=== PATIENT | female | born 1940 | race Caucasian/White ===

== ENCOUNTER → 2019-03-22 | Outpatient (CLI) | payer MEDICARE ==
[~2019-03-22] MED LIST: ALBU18HF INH; CHOL200052 PO; DEXL60CA2 PO; FLUT1DIS3 INH; HYDR25TA6 PO; MAGN400T26 PO; OMEP20CA9 PO; OMEP40CA6 PO; ONDA4TAB10 PO; PANT40TA3 PO; PANT40TA5 PO; POTA10TA11 PO; POTA20TA91 PO; POTA99TA14 PO; RANI150T23 PO; SUCR1ORA11 PO; TRAM50TA2 PO
== END | disposition home or self-care (01) ==
LOC: RAD 16:30
PROVIDERS: ATTEND Family Medicine
DX: M47.812 Spondylosis without myelopathy or radiculopathy, cervical region (principal)
CPT/HCPCS: 72050

== ENCOUNTER → 2019-03-23 | Outpatient (CLI) | payer MEDICARE | END | disposition home or self-care (01) | LOC: EDSTATUS 15:00 → RAD 15:05 | PROVIDERS: ATTEND Family Medicine | DX: M54.2 Cervicalgia (principal); R51 Headache; R42 Dizziness and giddiness; W50.0XXA Accidental hit or strike by another person, initial encounter; Y93.89 Activity, other specified; Y92.89 Other specified places as the place of occurrence of the external cause; Y99.8 Other external cause status | CPT/HCPCS: 70450; 70486 ==

== ENCOUNTER 2019-04-30 10:51 | Emergency (ER) | payer MEDICARE ==
[~2019-04-30] VITALS: Ht 170.2 cm; Wt 136.5 kg
[2019-04-30 12:44] VITALS: BP 169/83
== END 2019-04-30 12:50 | disposition home or self-care (01) ==
LOC: ED 12:00
DX: M25.511 Pain in right shoulder (principal); E78.5 Hyperlipidemia, unspecified; I10 Essential (primary) hypertension; J44.9 Chronic obstructive pulmonary disease, unspecified; Z90.49 Acquired absence of other specified parts of digestive tract; Z90.710 Acquired absence of both cervix and uterus
CPT/HCPCS: 73030; 99284; Q0162

== ENCOUNTER 2019-07-04 05:48 | Observation (INO) | payer MEDICARE ==
[~2019-07-04] VITALS: Ht 172.7 cm; Wt 133.0 kg
[~2019-07-04 05:48] MED LIST changes: +ACET325T26 PO; +ALPR0.254 PO; +AMLO-150 PO; +AMLO10TA8 PO; +CALC200T24 PO; +DOCU-131 PO; +HYDR-3237 PO; +HYDROCHLOROTHIAZIDE; +MAGN400T50 PO; +METH500T7 PO; +METO25TA35 PO; +OMEP40CA42 PO; -OMEP40CA6 PO; +ONDA4TAB13 PO; +PANT20TA3 PO; +PHOS250T3 PO; +POLY17PO5 PO; +POTA20TA6 PO; +RANI-467 PO; -RANI150T23 PO; +VANC1VIA3 PO
[2019-07-04] MEDS ORDERED: SODIUM CHLORIDE FLUSH 10ML SYR IVF ONE (06:30)
[2019-07-04 06:39] LABS: BASOPHILS % (AUTO) 2 % (0-1); EOSINOPHILS # (AUTO) 0.47 x10^3/uL (0-0.4); EOSINOPHILS % (AUTO) 8 % (1-7); LYMPHOCYTES # (AUTO) 1.23 x10^3/uL (1-3.4); LYMPHOCYTES % (AUTO) 20 % (22-44); MD NO; MEAN CORPUSCULAR HEMOGLOBIN 30.3 pg (27.0-34.8); MEAN CORPUSCULAR VOLUME 91.9 fL (80-100); MEAN PLATELET VOLUME 8.3 fL (7.4-10.4); MONOCYTES # (AUTO) 0.58 x10^3/uL (0.2-0.8); MONOCYTES % (AUTO) 9 % (2-9); NEUTROPHILS # (AUTO) 3.91 x10^3/uL (1.8-6.8); NEUTROPHILS % (AUTO) 62 % (42-75); PLATELET COUNT 390 x10^3/uL (130-400); RED BLOOD COUNT 3.62 x10^6/uL (3.82-5.3); RED CELL DISTRIBUTION WIDTH 16.7 % (9.6-15.2)
[2019-07-04 06:52] LABS: ALANINE AMINOTRANSFERASE 106 U/L (12-78); ALBUMIN 2.1 g/dL (3.4-5.0); ANION GAP 7 mmol/L (5-15); CALCIUM 8.2 mg/dL (8.5-10.1); CHLORIDE 103 mmol/L (98-107); CREATININE 0.72 mg/dL (0.55-1.02)
[2019-07-04 06:56] LABS: ALKALINE PHOSPHATASE 685 U/L (45-117); BILIRUBIN,TOTAL 0.7 mg/dL (0.2-1.0); TOTAL PROTEIN 5.7 g/dL (6.4-8.2); TROPONIN I < 0.015 ng/mL (0.000-0.045)
--- NOTE | 2019-07-04 06:58 | NUR ---
BEDSIDE REPORT FROM [place] MA, PT PUT ON BEDPAN CANNOT GET UP TO BEDSIDE COMMODE OR BATHROOM.
[2019-07-04 07:20] LABS: MICROSCOPIC NOT IND
--- NOTE | 2019-07-04 07:20 | NUR ---
PT RETURNED FROM [facility]. PT RESTING IN [facility]. UA SENT TO LAB. NO NEEDS AT THIS TIME.
[2019-07-04 07:22] LABS: CULTURE INDICATED? NO
--- NOTE | 2019-07-04 08:20 | NUR ---
PT RESTING IN [facility], PT TO BE ADMITTED. AWAITING ADMIT ORDER AND BED ASSIGNMENT. PT PLACED ON BEDPAN. NO NEEDS AT THIS TIME.
--- NOTE | 2019-07-04 08:52 | NUR ---
PT TEARFUL AND ANXIOUS ABOUT ADMISSION, STATING SHE IS FEELING OVERWHELMED ABOUT HER MEDICAL ISSUES. PT REASSURED AND GIVEN BLANKETS FOR COMFORT. AT BEDSIDE. PT STATES SHE IS IN PAIN AND NAUSEOUS, MD NOTIFIED.
--- NOTE | 2019-07-04 09:37 | NUR ---
REPORT TO CHARLEE MA
[2019-07-04] MEDS ORDERED: ONDANSETRON 2MG/ML, 2ML IVPush PRN (10:00)
[2019-07-04] MEDS ORDERED: ACETAMINOPHEN 325 MG TABLET PO PRN (10:00)
[2019-07-04 10:15] VITALS: BP 172/76
[2019-07-04] MEDS: BUTALB/APAP/CAFFEINE 50MG/325MG/40MG PO PRN ×2 (10:40→17:51)
[2019-07-04] MEDS: hydrALAzine 20 MG/ML, 1ML IVPush PRN (10:40)
[2019-07-04 13:41] VITALS: BP 159/72
[2019-07-04] MEDS ORDERED: ALBUTEROL SULFATE 2.5 MG/3 ML NPPB PRN (15:46)
[2019-07-04] MEDS: NEUTRA PHOS K 250 MG TABLET PO SCH ×2 (16:28→20:34)
[2019-07-04] MEDS: POTASSIUM CHLORIDE 20 MEQ TAB.ER.PRT PO SCH (16:28)
[2019-07-04 20:10] VITALS: BP 158/83
[2019-07-04] MEDS: METOPROLOL TARTRATE 25 MG TABLET PO SCH (20:36)
[2019-07-04] MEDS: METHOCARBAMOL 500 MG TABLET PO PRN (20:37)
[2019-07-04] MEDS ORDERED: ENOXAPARIN 30 MG/0.3 ML SQ SCH (21:00)
[2019-07-04] MEDS: ONDANSETRON ODT 4 MG PO PRN (22:30)
[2019-07-05 00:38] VITALS: BP 168/81
[2019-07-05] MEDS: hydrALAzine 20 MG/ML, 1ML IVPush PRN (00:43)
[2019-07-05] MEDS: CALCIUM CARBONATE 500 MG TAB.CHEW PO PRN (00:44)
[2019-07-05] MEDS: MORPHINE SULFATE 4 MG/ML, 1ML IVPush PRN ×2 (02:27→09:35)
[2019-07-05] MEDS: PANTOPRAZOLE 20MG TABLET PO SCH (04:57)
[2019-07-05] MEDS: METHOCARBAMOL 500 MG TABLET PO PRN ×2 (04:57→23:09)
[2019-07-05 05:13] LABS: BASOPHILS # (AUTO) 0.07 x10^3/uL (0-0.1); BASOPHILS % (AUTO) 1 % (0-1); EOSINOPHILS # (AUTO) 0.51 x10^3/uL (0-0.4); EOSINOPHILS % (AUTO) 8 % (1-7); LYMPHOCYTES # (AUTO) 1.18 x10^3/uL (1-3.4); LYMPHOCYTES % (AUTO) 18 % (22-44); MD NO; MEAN CORPUSCULAR HEMOGLOBIN 29.7 pg (27.0-34.8); MEAN CORPUSCULAR HGB CONC 32.4 g/dL (32.4-35.8); MEAN CORPUSCULAR VOLUME 91.5 fL (80-100); MEAN PLATELET VOLUME 8.2 fL (7.4-10.4); MONOCYTES # (AUTO) 0.57 x10^3/uL (0.2-0.8); MONOCYTES % (AUTO) 8 % (2-9); NEUTROPHILS # (AUTO) 4.41 x10^3/uL (1.8-6.8); NEUTROPHILS % (AUTO) 65 % (42-75); PLATELET COUNT 341 x10^3/uL (130-400); RED BLOOD COUNT 3.51 x10^6/uL (3.82-5.3); RED CELL DISTRIBUTION WIDTH 16.4 % (9.6-15.2)
[2019-07-05 05:23] LABS: CALCIUM 8.6 mg/dL (8.5-10.1); CHLORIDE 105 mmol/L (98-107)
[2019-07-05 05:26] LABS: ANION GAP 6 mmol/L (5-15); CREATININE 0.76 mg/dL (0.55-1.02)
[2019-07-05 09:00] VITALS: BP 177/83
[2019-07-05] MEDS ORDERED: MAGNESIUM SULFATE PMX 2GM/50ML 50 ML IV ONE (09:00)
[2019-07-05] MEDS: POTASSIUM CHLORIDE 20 MEQ TAB.ER.PRT PO SCH ×2 (09:00→17:30)
[2019-07-05] MEDS: POLYETHYLENE GLYCOL 17 GM PACKET PO SCH (09:01)
[2019-07-05] MEDS: NEUTRA PHOS K 250 MG TABLET PO SCH ×3 (09:01→20:02)
[2019-07-05] MEDS: METOPROLOL TARTRATE 25 MG TABLET PO SCH ×2 (09:06→20:02)
[2019-07-05 09:35] LABS: ALBUMIN 2.1 g/dL (3.4-5.0); BILIRUBIN, DIRECT 0.5 mg/dL (0.1-0.2)
[2019-07-05 09:37] LABS: BILIRUBIN,INDIRECT 0.3 mg/dL (0.0-2.0); BILIRUBIN,TOTAL 0.8 mg/dL (0.2-1.0); TOTAL PROTEIN 5.5 g/dL (6.4-8.2)
[2019-07-05] MEDS ORDERED: ALBUTEROL SULFATE 2.5 MG/3 ML NPPB SCH (10:00)
[2019-07-05] MEDS: ONDANSETRON ODT 4 MG PO PRN (10:34)
[2019-07-05] MEDS: BUDESONIDE 0.5 MG/2 ML INHA INH SCH ×2 (10:55→19:27)
[2019-07-05 11:36] VITALS: BP 135/67
[2019-07-05] MEDS ORDERED: PROPOFOL 10 MG/ML, 20ML ONE (13:49)
[2019-07-05] MEDS: ALBUTEROL SULFATE 2.5 MG/3 ML NPPB SCH ×2 (13:55→19:27)
[2019-07-05 14:00] VITALS: BP 161/73
[2019-07-05] MEDS ORDERED: LABETALOL 5MG/ML, 20ML IV PRN (14:00)
[2019-07-05] MEDS ORDERED: FENTANYL PF 100 MCG/2ML IV PRN (14:00)
[2019-07-05] MEDS ORDERED: MEPERIDINE/PF 25MG/0.5ML IVPush PRN (14:00)
[2019-07-05] MEDS ORDERED: PROMETHAZINE 25 MG/ML, 1ML IV PRN (14:00)
[2019-07-05] MEDS ORDERED: HYDROmorphone 1 MG/ML, 1ML INJ IV PRN (14:00)
[2019-07-05] MEDS ORDERED: ALBUTEROL SULFATE 2.5 MG/3 ML NPPB PRN (14:00)
[2019-07-05] MEDS ORDERED: OXYcodone 5 MG/5 ML ORAL.SOL UDC PO PRN (14:00)
[2019-07-05] MEDS ORDERED: METOCLOPRAMIDE 5 MG/ML, 2ML IV PRN (14:00)
[2019-07-05] MEDS ORDERED: KETOROLAC 30 MG/1 ML IV PRN (14:00)
[2019-07-05] MEDS ORDERED: ONDANSETRON 2MG/ML, 2ML IVPush PRN (14:00)
[2019-07-05] MEDS ORDERED: hydrALAzine 20 MG/ML, 1ML IV PRN (14:00)
[2019-07-05 19:47] VITALS: BP 145/67
[2019-07-06 03:29] VITALS: BP 167/74
[2019-07-06] MEDS: BUTALB/APAP/CAFFEINE 50MG/325MG/40MG PO PRN (03:31)
[2019-07-06] MEDS: PANTOPRAZOLE 20MG TABLET PO SCH (03:31)
[2019-07-06 06:16] LABS: ALANINE AMINOTRANSFERASE 68 U/L (12-78); ANION GAP 7 mmol/L (5-15); CALCIUM 8.5 mg/dL (8.5-10.1); CHLORIDE 107 mmol/L (98-107); CREATININE 0.74 mg/dL (0.55-1.02)
[2019-07-06 06:19] LABS: ALKALINE PHOSPHATASE 716 U/L (45-117); BILIRUBIN,TOTAL 0.7 mg/dL (0.2-1.0); TOTAL PROTEIN 5.4 g/dL (6.4-8.2)
[2019-07-06 08:33] VITALS: BP 158/88
[2019-07-06] MEDS: NEUTRA PHOS K 250 MG TABLET PO SCH ×3 (08:40→21:45)
[2019-07-06] MEDS: POLYETHYLENE GLYCOL 17 GM PACKET PO SCH (08:40)
[2019-07-06] MEDS: POTASSIUM CHLORIDE 20 MEQ TAB.ER.PRT PO SCH ×2 (08:40→17:05)
[2019-07-06] MEDS: METOPROLOL TARTRATE 25 MG TABLET PO SCH ×2 (08:40→21:45)
[2019-07-06] MEDS: ALBUTEROL SULFATE 2.5 MG/3 ML NPPB SCH ×2 (10:15→21:00)
[2019-07-06] MEDS: BUDESONIDE 0.5 MG/2 ML INHA INH SCH ×2 (10:15→21:00)
[2019-07-06] MEDS ORDERED: MAGNESIUM SULFATE PMX 2GM/50ML 50 ML IV ONE (12:00)
[2019-07-06 14:17] VITALS: BP 168/76
[2019-07-06] MEDS: METHOCARBAMOL 500 MG TABLET PO PRN (17:05)
[2019-07-06 17:20] VITALS: BP 144/86
[2019-07-06 20:12] VITALS: BP 168/70
[2019-07-06] MEDS: CALCIUM CARBONATE 500 MG TAB.CHEW PO PRN (22:00)
[2019-07-07] MEDS ORDERED: MORPHINE SULFATE 4 MG/ML, 1ML IVPush PRN (00:30)
[2019-07-07] MEDS: TRAZODONE 50MG TABLET PO PRN ×2 (01:09→21:15)
[2019-07-07 01:43] VITALS: BP 146/66
[2019-07-07] MEDS: METHOCARBAMOL 500 MG TABLET PO PRN ×2 (04:50→21:15)
[2019-07-07] MEDS: PANTOPRAZOLE 20MG TABLET PO SCH (05:06)
[2019-07-07 07:42] VITALS: BP 172/75
[2019-07-07] MEDS: POLYETHYLENE GLYCOL 17 GM PACKET PO SCH (07:53)
[2019-07-07] MEDS: METOPROLOL TARTRATE 25 MG TABLET PO SCH ×2 (07:53→21:16)
[2019-07-07] MEDS: NEUTRA PHOS K 250 MG TABLET PO SCH ×3 (07:53→21:15)
[2019-07-07] MEDS: POTASSIUM CHLORIDE 20 MEQ TAB.ER.PRT PO SCH ×2 (07:54→15:59)
[2019-07-07] MEDS: ALBUTEROL SULFATE 2.5 MG/3 ML NPPB SCH ×2 (10:40→21:00)
[2019-07-07] MEDS: BUDESONIDE 0.5 MG/2 ML INHA INH SCH ×2 (10:40→21:00)
[2019-07-07 13:32] VITALS: BP 159/74
[2019-07-07] MEDS: CALCIUM CARBONATE 500 MG TAB.CHEW PO PRN (15:59)
[2019-07-07 18:54] VITALS: BP 149/75
[2019-07-08 04:00] VITALS: BP 144/81
[2019-07-08] MEDS: PANTOPRAZOLE 20MG TABLET PO SCH (06:00)
[2019-07-08 08:04] VITALS: BP 153/64
[2019-07-08] MEDS: POLYETHYLENE GLYCOL 17 GM PACKET PO SCH ×3 (08:19→08:35)
[2019-07-08] MEDS: NEUTRA PHOS K 250 MG TABLET PO SCH (08:19)
[2019-07-08] MEDS: POTASSIUM CHLORIDE 20 MEQ TAB.ER.PRT PO SCH (08:20)
[2019-07-08] MEDS: METOPROLOL TARTRATE 25 MG TABLET PO SCH (08:20)
[2019-07-08] MEDS: BUDESONIDE 0.5 MG/2 ML INHA INH SCH (08:54)
[2019-07-08] MEDS: ALBUTEROL SULFATE 2.5 MG/3 ML NPPB SCH (08:54)
[2019-07-08] MEDS: METHOCARBAMOL 500 MG TABLET PO PRN (09:17)
[2019-07-08] MEDS ORDERED: TRAM50TA2 PO (11:14)
[2019-07-08 13:25] VITALS: BP 147/77
== END 2019-07-08 14:34 ==
LOC: ED 08:47 → INTOOBSV 09:54 → EDIP 09:54 → 5SO 09:59 → 4NE 07-06 15:49
PROVIDERS: ADMIT Internal Medicine; ATTEND Internal Medicine
DX: R10.13 Epigastric pain (principal); K31.7 Polyp of stomach and duodenum; E46 Unspecified protein-calorie malnutrition; K44.9 Diaphragmatic hernia without obstruction or gangrene; K26.9 Duodenal ulcer, unspecified as acute or chronic, without hemorrhage or perforation; I12.9 Hypertensive chronic kidney disease with stage 1 through stage 4 chronic kidney disease, or unspecified chronic kidney disease; D64.9 Anemia, unspecified; E03.9 Hypothyroidism, unspecified; E66.01 Morbid (severe) obesity due to excess calories; E78.5 Hyperlipidemia, unspecified; E83.51 Hypocalcemia; E86.0 Dehydration; F41.9 Anxiety disorder, unspecified; K21.9 Gastro-esophageal reflux disease without esophagitis; J44.9 Chronic obstructive pulmonary disease, unspecified; K76.0 Fatty (change of) liver, not elsewhere classified; G89.29 Other chronic pain; Z68.41 Body mass index [BMI] 40.0-44.9, adult; N18.9 Chronic kidney disease, unspecified; Z79.899 Other long term (current) drug therapy
CPT/HCPCS: 36415; 43239; 74022; 80048; 80053; 80074; 80076; 81003; 82784; 82977; 83516; 83690; 83735; 84075; 84080; 84484; 85025; 88305; 93005; 94640; 96365; 96366; 96372; 96375; 96376; 97116; 97162; 97166; 97530; 99285; G0378; J0360; J1650; J2270; J2405; J2704; J3475; J7613; J7626; Q0162

== ENCOUNTER 2019-07-23 13:41 | Emergency (ER) | payer MEDICARE ==
[~2019-07-23] VITALS: Ht 172.7 cm; Wt 100.0 kg
--- NOTE | 2019-07-23 13:45 | NUR ---
PT BIB EMS FOR WORSENING WEAKNESS AND SENSATION IN UPPER EXTREMITIES. PT HAD SPINAL FUSION ON JUN 25. PT STATES SHE DID NOT HAVE ANY PROBLEMS W STRENGTH PRIOR TO SURGERY. PT DENIES ANY PAIN. VS STABLE AT THIS TIME
--- NOTE | 2019-07-23 14:00 | NUR ---
PRIOR TO TRANSPORT TO MRI-PATIENT REPORTS SHE IS UNABLE TO TOLERATE MRI WITHOUT SEDATION. HOWEVER SHE REPORTS "I HALLUCINATE WHEN THEY GIVE ME THE MEDS TO KEEP ME CALM. I DON'T KNOW THE NAME OF MEDS." PROVIDER MADE AWARE-CONSIDERING MEDICATION CHOICE. DIRECTOR OF SPA AND GUEST EXPERIENCE MADE AWARE
[2019-07-23 14:19] LABS: BASOPHILS # (AUTO) 0.04 x10^3/uL (0-0.1); BASOPHILS % (AUTO) 1 % (0-1); EOSINOPHILS # (AUTO) 0.24 x10^3/uL (0-0.4); EOSINOPHILS % (AUTO) 3 % (1-7); LYMPHOCYTES # (AUTO) 1.14 x10^3/uL (1-3.4); LYMPHOCYTES % (AUTO) 17 % (22-44); MD NO; MEAN CORPUSCULAR HEMOGLOBIN 29.9 pg (27.0-34.8); MEAN CORPUSCULAR HGB CONC 32.5 g/dL (32.4-35.8); MEAN CORPUSCULAR VOLUME 91.8 fL (80-100); MEAN PLATELET VOLUME 8.5 fL (7.4-10.4); MONOCYTES # (AUTO) 0.46 x10^3/uL (0.2-0.8); MONOCYTES % (AUTO) 7 % (2-9); NEUTROPHILS # (AUTO) 5.03 x10^3/uL (1.8-6.8); NEUTROPHILS % (AUTO) 73 % (42-75); PLATELET COUNT 273 x10^3/uL (130-400); RED BLOOD COUNT 4.25 x10^6/uL (3.82-5.3); RED CELL DISTRIBUTION WIDTH 15.1 % (9.6-15.2)
[2019-07-23 14:28] LABS: ALBUMIN 2.7 g/dL (3.4-5.0); ANION GAP 5 mmol/L (5-15); CALCIUM 8.5 mg/dL (8.5-10.1); CHLORIDE 110 mmol/L (98-107); CREATININE 0.88 mg/dL (0.55-1.02)
[2019-07-23] MEDS ORDERED: MIDAZOLAM 1 MG/ML, 2ML IVPush ONE ×2 (14:30→18:00)
[2019-07-23 14:31] LABS: INTERNATIONAL NORMALIZED RATIO 0.99 (0.93-1.1); PROTHROMBIN TIME 10.4 Seconds (9.6-11.5)
[2019-07-23] MEDS ORDERED: MIDAZOLAM 1 MG/ML, 2ML ONE (15:45)
[2019-07-23 15:50] VITALS: BP 116/52
--- NOTE | 2019-07-23 15:50 | NUR ---
Right AC PIV Placed Patient then Tranported To MRI with Barber Instructor/manager mall
--- NOTE | 2019-07-23 15:54 | NUR ---
Medicated Per EMAR with 2mg of Versed IV Slow Push while in MRI (on pox/3l nc)
--- NOTE | 2019-07-23 15:59 | NUR ---
Medicated Per EMAR with 2mg of Versed IV Slow Push while in MRI (on pox/nasal cannula increased to 5l nc). total of 4mg thus far ase certified technician reports scan going well.
--- NOTE | 2019-07-23 17:48 | NUR ---
with reassessment no changes in neuro exam, remain with right and left upper extremity pain causing poor mobility. no lower extremity involvment
--- NOTE | 2019-07-23 18:33 | NUR ---
Arrangements made by throughput rn for medical tranport to transfer patient back to snf at 1930 Patient/ made aware dinner tray ordered. helped up to restroom
== END 2019-07-24 09:15 | disposition home or self-care (01) ==
LOC: ED 14:00
DX: R20.2 Paresthesia of skin (principal); R53.1 Weakness; I10 Essential (primary) hypertension; J44.9 Chronic obstructive pulmonary disease, unspecified; Z90.710 Acquired absence of both cervix and uterus; Z90.49 Acquired absence of other specified parts of digestive tract
CPT/HCPCS: 36415; 72141; 80048; 82040; 85025; 85610; 85730; 93005; 99284; J2250; 96374

== ENCOUNTER → 2019-08-25 | Outpatient (CLI) | payer MEDICARE | END | disposition home or self-care (01) | LOC: CFH 10:56 | PROVIDERS: ATTEND Nurse Practitioner Gerontology | DX: M47.812 Spondylosis without myelopathy or radiculopathy, cervical region (principal); M48.02 Spinal stenosis, cervical region | CPT/HCPCS: 72040 ==

== ENCOUNTER 2019-09-16 19:13 | Emergency (ER) | payer MEDICARE ==
[~2019-09-16] VITALS: Ht 170.2 cm; Wt 120.0 kg
--- NOTE | 2019-09-16 20:06 | NUR ---
Patient came to ER due to high BP. Patient states she has a hx of HTN which she takes meds for. She states she randomly checks her BP throughout the day and it was high at home so she came in. Patient has been feeling more generalized weakness lately. Patient denies WILLIAM, dizziness. No facial droop or slurred speech noted. Pushes, pulls, and water resource manager equal. Sensation inact.
--- NOTE | 2019-09-16 20:29 | NUR ---
Patient up to bathroom for UA. Patient ambulatory with a steady gait.
[2019-09-16 20:37] LABS: BASOPHILS # (AUTO) 0.02 x10^3/uL (0-0.1); BASOPHILS % (AUTO) 0 % (0-1); EOSINOPHILS # (AUTO) 0.27 x10^3/uL (0-0.4); EOSINOPHILS % (AUTO) 3 % (1-7); LYMPHOCYTES # (AUTO) 2.19 x10^3/uL (1-3.4); LYMPHOCYTES % (AUTO) 25 % (22-44); MD NO; MEAN CORPUSCULAR HEMOGLOBIN 29.2 pg (27.0-34.8); MEAN CORPUSCULAR HGB CONC 32.6 g/dL (32.4-35.8); MEAN CORPUSCULAR VOLUME 89.5 fL (80-100); MEAN PLATELET VOLUME 8.6 fL (7.4-10.4); MONOCYTES # (AUTO) 0.57 x10^3/uL (0.2-0.8); MONOCYTES % (AUTO) 6 % (2-9); NEUTROPHILS # (AUTO) 5.86 x10^3/uL (1.8-6.8); NEUTROPHILS % (AUTO) 66 % (42-75); PLATELET COUNT 349 x10^3/uL (130-400); RED BLOOD COUNT 4.59 x10^6/uL (3.82-5.3)
[2019-09-16 20:48] LABS: ALBUMIN 3.3 g/dL (3.4-5.0); ANION GAP 5 mmol/L (5-15); CALCIUM 9.3 mg/dL (8.5-10.1); CHLORIDE 109 mmol/L (98-107); CREATININE 1.09 mg/dL (0.55-1.02)
[2019-09-16 20:55] LABS: CULTURE INDICATED? YES; MICROSCOPIC INDICATED
[2019-09-16] MEDS ORDERED: CEFDINIR 300 MG CAPSULE ONE (21:21)
[2019-09-16 21:25] VITALS: BP 166/85
[2019-09-16] MEDS ORDERED: CEFDINIR 300 MG CAPSULE PO ONE (21:30)
== END 2019-09-16 22:04 | disposition home or self-care (01) ==
LOC: ED 21:14
DX: E86.0 Dehydration (principal); N39.0 Urinary tract infection, site not specified; I10 Essential (primary) hypertension; J44.9 Chronic obstructive pulmonary disease, unspecified; Z90.49 Acquired absence of other specified parts of digestive tract; Z90.710 Acquired absence of both cervix and uterus
CPT/HCPCS: 36415; 80048; 81001; 82040; 85025; 87086; 93005; 99284

== ENCOUNTER 2019-11-22 14:06 | Outpatient (CLI) | payer MEDICARE ==
[~2019-11-22 14:06] MED LIST changes: -SUCR1ORA11 PO; +SUCR1ORA14 PO
== END 2019-11-22 23:59 | disposition home or self-care (01) ==
LOC: CFH 14:06
PROVIDERS: ATTEND Neurological Surgery
DX: M48.02 Spinal stenosis, cervical region (principal); M50.31 Other cervical disc degeneration, high cervical region
CPT/HCPCS: 72040

== ENCOUNTER 2021-01-01 13:45 | Observation (INO) | payer MEDICARE ==
[~2021-01-01] VITALS: Ht 175.3 cm; Wt 134.8 kg
[~2021-01-01 13:45] MED LIST changes: +AMLO-211 PO; -AMLO10TA8 PO; +METH-639 PO; -METH500T7 PO; -PANT20TA3 PO; +PANT20TA4 PO; -PANT40TA5 PO; +PANT40TA6 PO
--- NOTE | 2021-01-01 14:17 | NUR ---
PT C/O OF INSIDES BOTHERING HER AND THAT SHE JUST WASN'T FEELING WELL. WENT TO URGENT CARE AND BP WAS 210/100 REPORTS NAUSEA AND HEADACHE, DENIES SOB, CP
[2021-01-01] MEDS ORDERED: MORPHINE SULFATE 4 MG/ML, 1ML ONE ×2 (14:24→16:16)
[2021-01-01 14:30] LABS: BASOPHILS % (AUTO) 1 % (0-1); EOSINOPHILS % (AUTO) 4 % (1-7); LYMPHOCYTES % (AUTO) 28 % (22-44); MEAN CORPUSCULAR HEMOGLOBIN 29.9 pg (27.0-34.8); MEAN CORPUSCULAR HGB CONC 33.2 g/dL (32.4-35.8); MEAN PLATELET VOLUME 8.8 fL (7.4-10.4); MONOCYTES % (AUTO) 5 % (2-9); NEUTROPHILS % (AUTO) 63 % (42-75); PLATELET COUNT 211 x10^3/uL (130-400); RED CELL DISTRIBUTION WIDTH 13.9 % (9.6-15.2)
[2021-01-01] MEDS ORDERED: SODIUM CHLORIDE FLUSH 10ML SYR IVF ONE (14:30)
[2021-01-01 14:33] LABS: MD NO
[2021-01-01 14:33] LABS: MICROSCOPIC AUTO
[2021-01-01 14:37] LABS: ALANINE AMINOTRANSFERASE 17 U/L (12-78); ALBUMIN 3.6 g/dL (3.4-5.0); ANION GAP 7 mmol/L (5-15); CALCIUM 9.1 mg/dL (8.5-10.1); CHLORIDE 109 mmol/L (98-107)
[2021-01-01 14:39] LABS: ALKALINE PHOSPHATASE 73 U/L (45-117); BILIRUBIN,TOTAL 0.5 mg/dL (0.2-1.0); TOTAL PROTEIN 6.9 g/dL (6.4-8.2)
[2021-01-01] MEDS: MORPHINE SULFATE 4 MG/ML, 1ML IVPush PRN ×2 (14:39→16:20)
--- NOTE | 2021-01-01 15:33 | NUR ---
PT OFF UNIT IN IMAGING.
[2021-01-01] MEDS ORDERED: OMNIPAQUE 350 MG/ML, 100ML BOTTLE ONE (15:50)
[2021-01-01] MEDS ORDERED: PANTOPRAZOLE 20MG TABLET ONE (17:20)
[2021-01-01] MEDS ORDERED: ENALAPRILAT 1.25 MG/ML, 1ML ONE (17:20)
[2021-01-01] MEDS ORDERED: ONDANSETRON 2MG/ML, 2ML ONE (17:20)
[2021-01-01 17:30] LABS: TROPONIN I < 0.015 ng/mL (0.000-0.045)
[2021-01-01] MEDS ORDERED: ENALAPRILAT 1.25 MG/ML, 2ML IV ONE (17:30)
[2021-01-01] MEDS ORDERED: ONDANSETRON 2MG/ML, 2ML IVPush ONE (17:30)
[2021-01-01] MEDS ORDERED: PANTOPRAZOLE 20MG TABLET PO ONE (17:30)
[2021-01-01] MEDS ORDERED: PROMETHAZINE 25 MG/ML, 1ML ONE (18:04)
--- NOTE | 2021-01-01 18:28 | NUR ---
PT AMBULATED TO BATHROOM WITH CANE, UNMEASURED URINE. AMBULATED TO ROOM WITH CANE, ATTACHED TO MONITORS, BP ELEVATED, OTHER VITALS STABLE. PT VOMITTED PRIOR TO BATHROOM. AT BEDSIDE. CALL LIGHT WTHIN REACH. BED IN LOW POSITION.
[2021-01-01] MEDS ORDERED: NITROGLYCERIN 0.4 MG/SPRAY SL PRN (18:30)
[2021-01-01] MEDS ORDERED: CEFTRIAXONE 2 GM in DEXTROSE 5% 50 ML IVPB ONE (18:30)
[2021-01-01] MEDS ORDERED: ONDANSETRON 2MG/ML, 2ML IV PRN (18:30)
[2021-01-01] MEDS ORDERED: PROMETHAZINE 25 MG/ML, 1ML IM ONE (18:30)
[2021-01-01] MEDS ORDERED: ACETAMINOPHEN 325 MG TABLET PO PRN (18:30)
[2021-01-01] MEDS ORDERED: ENOXAPARIN 40 MG/0.4 ML SQ SCH (18:30)
[2021-01-01] MEDS ORDERED: NITROGLYCERIN 0.4 MG BOTTLE (25 TABS) SL PRN (18:30)
[2021-01-01] MEDS ORDERED: ASPIRIN 81 MG TABLET CHEW PO ONE (18:30)
[2021-01-01] MEDS ORDERED: METHOCARBAMOL 500 MG TABLET PO PRN (18:30)
[2021-01-01] MEDS ORDERED: HYDROcodone/APAP 5/325 TABLET PO PRN (18:30)
[2021-01-01] MEDS ORDERED: hydrALAzine 20 MG/ML, 1ML IV PRN (18:30)
[2021-01-01] MEDS ORDERED: ALBUTEROL HFA 90 MCG/SPRAY INH PRN (18:30)
[2021-01-01] MEDS ORDERED: ENOXAPARIN 40 MG/0.4 ML ONE (18:40)
[2021-01-01] MEDS ORDERED: ASPIRIN 81 MG TABLET CHEW ONE (18:40)
[2021-01-01] MEDS ORDERED: METOPROLOL TARTRATE 25 MG TAB PO SCH (18:49)
[2021-01-01 19:06] LABS: TROPONIN I < 0.015 ng/mL (0.000-0.045)
--- NOTE | 2021-01-01 19:25 | NUR ---
GAVE REPORT TO SER[place] MA
[2021-01-01 20:32] VITALS: BP 169/68
[2021-01-01] MEDS: SODIUM CHLORIDE FLUSH 10ML SYR IVF SCH (20:40)
[2021-01-01] MEDS: K-PHOS NEUTRAL 250MG TAB PO SCH (20:40)
[2021-01-01] MEDS: MAGNESIUM OXIDE 400 MG TABLET PO SCH (20:40)
[2021-01-01] MEDS: AMOXICILLIN/CLAV 875-125MG TABLET PO SCH (20:40)
[2021-01-01 21:37] LABS: TROPONIN I < 0.015 ng/mL (0.000-0.045)
[2021-01-02 01:42] VITALS: BP 157/81
[2021-01-02 05:13] LABS: ANION GAP 4 mmol/L (5-15); CALCIUM 8.5 mg/dL (8.5-10.1); CHLORIDE 109 mmol/L (98-107)
[2021-01-02 05:15] LABS: CREATININE 1.08 mg/dL (0.55-1.02)
[2021-01-02] MEDS ORDERED: ASPIRIN 325 MG TABLET EC PO SCH (06:00)
[2021-01-02] MEDS ORDERED: PANTOPRAZOLE 20MG TABLET PO SCH (06:00)
[2021-01-02] MEDS ORDERED: POTASSIUM CHLORIDE 20 MEQ TAB.ER.PRT PO SCH (08:00)
[2021-01-02 08:03] VITALS: BP 147/78
[2021-01-02] MEDS ORDERED: POLYETHYLENE GLYCOL 17 GM PACKET PO SCH (09:00)
[2021-01-02] MEDS ORDERED: HYDROCHLOROTHIAZIDE 12.5 MG CAPSULE PO SCH (09:00)
[2021-01-02] MEDS ORDERED: HYDROCHLOROTHIAZIDE 25 MG TABLET PO SCH (09:00)
[2021-01-02] MEDS: SODIUM CHLORIDE FLUSH 10ML SYR IVF SCH (09:00)
[2021-01-02] MEDS: AMOXICILLIN/CLAV 875-125MG TABLET PO SCH (10:24)
[2021-01-02] MEDS: MAGNESIUM OXIDE 400 MG TABLET PO SCH (10:24)
[2021-01-02] MEDS: K-PHOS NEUTRAL 250MG TAB PO SCH (10:24)
[2021-01-02] MEDS ORDERED: AMOX1TAB12 PO (11:56)
[2021-01-02] MEDS ORDERED: HYDR25TA6 PO (11:56)
[2021-01-02 13:00] VITALS: BP 158/78
== END 2021-01-02 14:40 | disposition home or self-care (01) ==
LOC: ED 17:32 → INTOOBSV 18:16 → EDIP 18:16 → 5SO 20:29 → DCLOUNGE 01-02 14:32
PROVIDERS: ADMIT Emergency Medicine; ATTEND Internal Medicine
DX: I16.0 Hypertensive urgency (principal); J18.1 Lobar pneumonia, unspecified organism; K52.9 Noninfective gastroenteritis and colitis, unspecified; J45.909 Unspecified asthma, uncomplicated; I10 Essential (primary) hypertension; G89.29 Other chronic pain; M54.2 Cervicalgia; E66.01 Morbid (severe) obesity due to excess calories; F41.9 Anxiety disorder, unspecified; F11.20 Opioid dependence, uncomplicated; Z68.41 Body mass index [BMI] 40.0-44.9, adult; Z79.899 Other long term (current) drug therapy; Z91.14 Patient's other noncompliance with medication regimen; Z91.19 Patient's noncompliance with other medical treatment and regimen
CPT/HCPCS: 36415; 71045; 74177; 80048; 80053; 81001; 83036; 83690; 84145; 84484; 85025; 87040; 87086; 93005; 96372; 96374; 96375; 96376; 99285; G0378; J1650; J2270; J2405; J2550; Q9967

== ENCOUNTER → 2021-01-11 | Outpatient (CLI) | payer MEDICARE ==
[~2021-01-11] MED LIST changes: +AMOX1TAB12 PO
== END | disposition home or self-care (01) ==
LOC: CFH 10:50
PROVIDERS: ATTEND Internal Medicine
DX: I67.2 Cerebral atherosclerosis (principal); G44.311 Acute post-traumatic headache, intractable; Z91.81 History of falling
CPT/HCPCS: 70450